=== PATIENT | male | born 1980 | race Caucasian/White ===

== ENCOUNTER 2021-01-20 20:43 | Emergency (ER) | payer SELFPAY ==
[~2021-01-20] VITALS: Ht 185.4 cm; Wt 122.7 kg
[2021-01-20 21:18] VITALS: BP 163/107
--- NOTE | 2021-01-20 21:35 | PHYS DOC ---
Past Medical History Smoking Status: Current Every Day Smoker Alcohol Use: None Social History Narrative: "IM AN ADDICT I USE WHATEVER I CAN" General Adult EDM: Chief Complaint: WRIST PAIN HPI: HPI: Patient is a 40 year old male who presents with police after being arrested. He resisted arrest and had a taser with a kvng in his left arm. Barbs removed prior to arrival. He complains of bilateral wrist pain and says it started during his resisting arrest. Denies pain elsewhere. Review of Systems: Review of Systems: Constitutional: Denies fever or chills. [] Eyes: Denies change in visual acuity. [] HENT: Denies nasal congestion or sore throat. [] Respiratory: Denies cough or shortness of breath. [] Cardiovascular: Denies chest pain or edema. [] GI: Denies abdominal pain, nausea, vomiting, bloody stools or diarrhea. [] : Denies dysuria. [] Musculoskeletal: + Bilateral wrist pain [] Integument: Denies rash. [] Neurologic: Denies headache, focal weakness or sensory changes. [] Endocrine: Denies polyuria or polydipsia. [] Lymphatic: Denies swollen glands. [] Psychiatric: Denies depression or anxiety. [] Heart Score: C/O Chest Pain: No Risk Factors: Risk Factors: DM, Current or recent (<one month) smoker, HTN, HLP, family history of CAD, obesity. Risk Scores: Score 0 - 3: 2.5% MACE over next 6 weeks - Discharge Home Score 4 - 6: 20.3% MACE over next 6 weeks - Admit for Clinical Observation Score 7 - 10: 72.7% MACE over next 6 weeks - Early Invasive Strategies Allergies: Allergies: Allergies Coded Allergies Type Severity Reaction Last Updated Verified No Known Drug Allergies 01/20/21 No Physical Exam: PE: Constitutional: Well developed, well nourished, no acute distress, non-toxic appearance. [] HENT: Small abrasion on cheek [] Eyes: PERRLA, EOMI, conjunctiva normal, no discharge. [] Neck: Normal range of motion, no tenderness, supple, no stridor. [] Cardiovascular:Heart rate regular rhythm, no murmur [] Lungs & Thorax: Bilateral breath sounds clear to auscultation [] Abdomen: Bowel sounds normal, soft, no tenderness, no masses, no pulsatile masses. [] Skin: Warm, dry, no erythema, no rash. [] Back: No tenderness, no CVA tenderness. [] Extremities: Track reynolds on arms. No deformity or edema. Reports tenderness on the left radius and ulna distally, and right radius distally. Pulses radial 2+ [] Neurologic: Alert and oriented X 3, normal motor function, normal sensory function, no focal deficits noted. [] Psychologic: Affect normal, judgement normal, mood normal. [] EKG: EKG: [] Radiology/Procedures: Radiology/Procedures: Bilateral wrist x-rays -ultimately were not completed as the patient left AMA [] Course & Med Decision Making: Course & Med Decision Making Pertinent Labs and Imaging studies reviewed. (See chart for details) Patient is a 40-year-old male who presents with bilateral wrist pain after resisting arrest with police. Arrives in handcuffs. Cuts were removed and wrist exam did not show any deformity or edema. He did complain of distal radial and ulnar pain. Bilateral wrist x-rays were ordered, and prior to completion the patient stated that he no longer wanted to have x-rays and that his wrist were feeling better. We advised that he stay and have the x-rays done, and he left AGAINST MEDICAL ADVICE in police custody. He did seem to have capacity to understand that we could potentially be missing a bony injury/fracture of his wrists. [id number] Jah Disclaimer: Jah Disclaimer: This electronic medical record was generated, in whole or in part, using a voice recognition dictation system. Departure Departure Impression: Primary Impression: Bilateral wrist pain Disposition: LEFT AGAINST MEDICAL ADVICE Condition: STABLE AGUSTINA MORA MD Jan 20, 2021 21:35
== END 2021-01-20 21:18 | disposition left against medical advice (07) ==
LOC: ER 20:43
DX: M25.532 Pain in left wrist (principal); M25.531 Pain in right wrist; F17.200 Nicotine dependence, unspecified, uncomplicated; Z53.21 Procedure and treatment not carried out due to patient leaving prior to being seen by health care provider
CPT/HCPCS: 99283

== ENCOUNTER 2021-01-21 04:23 | Emergency (ER) | payer SELFPAY ==
[~2021-01-21] VITALS: Ht 185.4 cm; Wt 135.0 kg
--- NOTE | 2021-01-21 04:57 | PHYS DOC ---
Past Medical History Additional Past Medical Histor: SEIZURE/TBI, IVDU (AGUSTINA MORA MD) Past Surgical History: Other Additional Past Surgical Histo: R WRIST SX "PINS AND RODS" (AGUSTINA MORA MD) Smoking Status: Current Every Day Smoker Alcohol Use: None (AGUSTINA MORA MD) General Adult EDM: Chief Complaint: wrist pain, chest pain HPI: HPI: Patient is a 40 year old male with history of HTN, HLD, IVDU who presents for his second visit with police today. Earlier today was complaining of bilateral wrist pain after being apprehended by police. He signed out AMA prior to x- rays. Now is complaining of continued wrist pain, requesting x-rays. In ad dition to wrist pain he is not complaining of chest pain that started 1 hour ago (approximately 3:30 AM). Describes it as pressure in the middle of his chest. Does not radiate. States that he feels slightly short of breath with it. Admits to IV fentanyl and heroin, IV meth, and marijuana use yesterday. (AGUSTINA MORA MD) Review of Systems: Review of Systems: Constitutional: Denies fever or chills. [] Eyes: Denies change in visual acuity. [] HENT: Denies nasal congestion or sore throat. [] Respiratory: Denies cough or shortness of breath. [] Cardiovascular: Reports chest pain. Denies edema.. [] GI: Denies abdominal pain, nausea, vomiting, bloody stools or diarrhea. [] : Denies dysuria. [] Musculoskeletal: reports bilateral wrist pain.. [] Integument: Denies rash. [] Neurologic: Denies headache, focal weakness or sensory changes. [] Endocrine: Denies polyuria or polydipsia. [] Lymphatic: Denies swollen glands. [] Psychiatric: Denies depression or anxiety. [] (AGUSTINA MORA MD) Heart Score: C/O Chest Pain: Yes HEART Score for Chest Pain: HEART Score for Chest Pain Response (Comments) Value History Moderately Suspicious 1 ECG Nonspecific Repolarizatio 1 Age < 45 0 Risk Factors 1 or 2 Risk Factors 1 Total 3 Risk Factors: Risk Factors: DM, Current or recent (<one month) smoker, HTN, HLP, family hist ory of CAD, obesity. Risk Scores: Score 0 - 3: 2.5% MACE over next 6 weeks - Discharge Home Score 4 - 6: 20.3% MACE over next 6 weeks - Admit for Clinical Observation Score 7 - 10: 72.7% MACE over next 6 weeks - Early Invasive Strategies (AGUSTINA MORA MD) Allergies: Allergies: Allergies Coded Allergies Type Severity Reaction Last Updated Verified No Known Drug Allergies 01/20/21 No (AGUSTINA MORA MD) Physical Exam: PE: Constitutional: No acute distress. Alert and oriented. Sitting upright in bed with handcuffs in place. [] HENT: Normocephalic, atraumatic, bilateral external ears normal, oropharynx moist, no oral exudates, nose normal. [] Eyes: PERRLA, EOMI, conjunctiva normal, no discharge. [] Neck: Normal range of motion, no tenderness, supple, no stridor. [] Cardiovascular:Heart rate regular rhythm, no murmur [] Lungs & Thorax: Bilateral breath sounds clear to auscultation [] Abdomen: Bowel sounds normal, soft, no tenderness, no masses, no pulsatile masses. [] Skin: Warm, dry, no erythema, no rash. [] Back: No tenderness, no CVA tenderness. [] Extremities: Distal radial and ulnar tenderness to palpation in bilateral wrist. No appreciable edema or deformity. 2+ DP pulses. Radial, ulnar, median nerves intact in motor and sensory exam. [] Neurologic: Alert and oriented X 3, normal motor function, normal sensory function, no focal deficits noted. [] Psychologic: Affect normal, judgement normal, mood normal. [] (AGUSTINA MORA MD) EKG: EKG: Sinus rhythm. Rate 57. Left axis deviation. Inferior Q waves. Inferior T wave inversions. No ST elevation or ST depression evident. [] (AGUSTINA MORA MD) Radiology/Procedures: Radiology/Procedures: CXR, Bilateral Wrist X-ray[] (AGUSTINA MORA MD) Radiology/Procedures: BILATERAL WRIST, 3 VIEWS Indication: Reason: chest pain / Findings: Right: There is volar plate and cortical screw fixation of the distal radius. There is radiocarpal joint space narrowing. There is old fracture near the base of the fifth metacarpal. There is no acute fracture or dislocation. No bony erosion is identified. The mineralization is normal. There is no soft tissue swelling. Left: There is no acute fracture or dislocation. No bony erosion is identified. The bony articulations are normal. The mineralization is normal. There is mild dorsal soft tissue swelling of the distal radius. IMPRESSION: No acute fracture. Electronically signed by: Logan Acevedo MD (01/21/2021 5:59 AM) (JOHNATHON ARNETT DO) Course & Med Decision Making: Course & Med Decision Making Pertinent Labs and Imaging studies reviewed. (See chart for details) Patient is a 40-year-old male with history of HTN, HLD, IVDU including opiates and methamphetamine who presents from [facility] for concern of continued bilateral wrist pain (for which she was evaluated and left AMA prior to x-rays earlier today) and new onset chest pain 1 hour prior to arrival. We will obtain EKG, CXR, serial troponins. ASA 324mg ordered. He is agreeable to wrist x-rays at this time. 0456 There has been difficulty gaining IV access. At this time first troponin is still pending as well as radiology reads of CXR and Wrist XR's. Will be signed out with diagnostics and disposition pending. 0554 (AGUSTINA MORA MD) Course & Med Decision Making 0600: Assumed care from Dr. Mora at this time, pending labs and imaging disposition (JOHNATHON ARNETT DO) Dragon Disclaimer: Dragon Disclaimer: This electronic medical record was generated, in whole or in part, using a voice recognition dictation system. (AGUSTINA MORA MD) Departure Departure Impression: Primary Impression: Chest pain Additional Impression: Bilateral wrist pain Referrals: NO PCP (PCP) AGUSTINA MORA MD Jan 21, 2021 04:57 JOHNATHON ARNETT DO Jan 21, 2021 06:14
[2021-01-21] MEDS ORDERED: ASPIRIN CHEWABLE 81 MG TABLET. PO ONE (05:00)
--- NOTE | 2021-01-21 05:17 | EKG ---
[facility] [address] [place] [address] Test Date: 2021-01-21 Test Time: 05:06:38 Pat Name: RAKAN ZURITA Department: Room: Gender: M Pt Sitter: : 1980 Requested By: AGUSTINA MORA Order Number: [id number] Reading MD: Measurements Intervals [place] Rate: 57 P: 4 [place]: 158 QRS: -28 QRSD: 96 T: -6 QT: 438 QTc: 425 Interpretive Statements SINUS RHYTHM LEFTWARD AXIS QRS(T) CONTOUR ABNORMALITY CONSISTENT WITH SEPTAL INFARCT AGE UNDETERMINED CONSIDER INFERIOR MYOCARDIAL DAMAGE ABNORMAL ECG RI6.02 No previous ECG available for comparison
--- NOTE | 2021-01-21 05:58 | RAD ---
XR CHEST 1V Clinical Indication: Reason: chest pain Comparison: None. Findings: The cardiomediastinal silhouette is normal. Lungs are clear. There is no pneumothorax. No pleural eff usion is appreciated. No acute bone abnormality. IMPRESSION: No acute cardiopulmonary process. Electronically signed by: Logan Acevedo MD (01/21/2021 5:56 AM) [facility]ITALRicardo
--- NOTE | 2021-01-21 06:02 | RAD ---
BILATERAL WRIST, 3 VIEWS Indication: Reason: chest pain / Findings: Right: There is volar plate and cortical screw fixation of the distal radius. There is radiocarpal joint spa ce narrowing. There is old fracture near the base of the fifth metacarpal. There is no acute fracture or dislocation. No bony erosion is identified. The mineralization is norm al. There is no soft tissue swelling. Left: There is no acute fracture or dislocation. No bony erosion is identified. The bony articulations are normal. The mineralization is normal. There is mild dorsal soft tissue swelling of the distal radius. IMPRESSION: No acute fracture. Electronically signed by: Logan Acevedo MD (01/21/2021 5:59 AM) [facility]
[2021-01-21 06:36] LABS: BASO % 0 % (0-3); EOS # 0.2 x10^3/uL (0.0-0.7); EOS % 2 % (0-3); HEMATOCRIT 47.1 % (39.0-53.0); LYMPH # 1.5 x10^3/uL (1.0-4.8); LYMPH % 16 % (24-48); MEAN CORPUSCULAR HEMOGLOBIN 27 pg (25-35); MEAN CORPUSCULAR HGB CONC 34 g/dL (31-37); MEAN CORPUSCULAR VOLUME 80 fL (79-100); MONO # 0.8 x10^3/uL (0.0-1.1); MONO % 8 % (0-9); NEUT # 7.1 x10^3/uL (1.8-7.7); NEUT % 74 % (31-73); PLATELET COUNT 302 x10^3/uL (140-400); RED BLOOD COUNT 5.92 x10^6/uL (4.30-5.70); RED CELL DISTRIBUTION WIDTH 14.7 % (11.5-14.5); WHITE BLOOD COUNT 9.7 x10^3/uL (4.0-11.0)
[2021-01-21 06:37] LABS: CALCIUM 9.2 mg/dL (8.5-10.1); GFR 83.2; POTASSIUM 3.9 mmol/L (3.5-5.1)
[2021-01-21 06:43] LABS: ALBUMIN 3.6 g/dL (3.4-5.0); ALBUMIN/GLOBULIN RATIO 1.1 (1.0-1.7); TOTAL BILIRUBIN 0.7 mg/dL (0.2-1.0)
[2021-01-21 08:43] VITALS: BP 177/84
== END 2021-01-21 09:15 | disposition home or self-care (01) ==
LOC: ER 04:23
DX: R07.89 Other chest pain (principal); M25.532 Pain in left wrist; M25.531 Pain in right wrist; E78.00 Pure hypercholesterolemia, unspecified; F17.200 Nicotine dependence, unspecified, uncomplicated
CPT/HCPCS: 36415; 71045; 80053; 84484; 85025; 93005; 73110-50; 99285-25